=== PATIENT | male | born 1970 | race Two or more races ===

== ENCOUNTER 2024-09-18 13:22 | Inpatient (IN) | payer OTHER ==
[2024-09-18 13:39] VITALS: BMI 27.7
[2024-09-18] MEDS ORDERED: DICYCLOMINE HCL 10 MG CAPSULE PO PRN (13:56)
[2024-09-18] MEDS ORDERED: NALOXONE (NARCAN) HCL 4 MG/0.1 ML SPRAY NS PRN (13:56)
[2024-09-18] MEDS ORDERED: LOPERAMIDE HCL 2 MG CAPSULE PO PRN (13:56)
[2024-09-18] MEDS ORDERED: BISMUTH SUBSALICYLATE 524 MG/30 ML PO PRN (13:56)
[2024-09-18] MEDS ORDERED: IBUPROFEN 400 MG TABLET (FP) PO PRN (13:56)
[2024-09-18] MEDS ORDERED: LORazepam 1 MG TABLET PO PRN (13:56)
[2024-09-18] MEDS ORDERED: BENZOCAINE/MENTHOL (CHLORASEPTIC ) LOZENGE MM PRN (13:56)
[2024-09-18] MEDS ORDERED: ACETAMINOPHEN 325 MG TABLET (FP) PO PRN (13:56)
[2024-09-18] MEDS ORDERED: BENZONATATE 200 MG CAPSULE PO PRN (13:56)
[2024-09-18] MEDS ORDERED: NICOTINE POLACRILEX 2 MG GUM BUC PRN (13:56)
[2024-09-18] MEDS ORDERED: ONDANSETRON *ODT* 4 MG TABLET SL PRN (13:56)
[2024-09-18] MEDS ORDERED: MAGNESIUM HYDROX 2400MG/30ML ORAL SUSPENSION 30 ML CUP PO PRN (13:56)
[2024-09-18] MEDS ORDERED: hydrOXYzine PAMOATE 25 MG CAPSULE (FP) PO PRN (13:56)
[2024-09-18] MEDS ORDERED: POLYETHYLENE GLYCOL (HEALTHYLAX) 3350 17 GM PACKET PO PRN (13:56)
[2024-09-18] MEDS ORDERED: MAG HYDROX/AL HYDROX/SIMETH 30 ML UNIT-DOSE CUP PO PRN (13:56)
[2024-09-18] MEDS ORDERED: guaiFENesin 600 MG TABLET.ER (FP) PO PRN (13:56)
[2024-09-18] MEDS: NALTREXONE HCL 50 MG TABLET PO ONE (15:36)
[2024-09-18] MEDS: LORazepam 2 MG TABLET PO SCH (17:28)
[2024-09-18] MEDS: metFORMIN HCL 500 MG TABLET (FP) PO SCH (17:28)
[2024-09-18] MEDS: IBUPROFEN 600 MG TABLET (FP) PO PRN (17:30)
[2024-09-18] MEDS: MELATONIN 5 MG TABLETS PO SCH (22:07)
[2024-09-18] MEDS: GABAPENTIN 300 MG CAPSULE PO SCH (22:07)
[2024-09-18] MEDS: THIAMINE 100 MG TABLET PO SCH (22:08)
[2024-09-19] MEDS: ASPIRIN 81 MG CHEWABLE TABLETS PO SCH (10:08)
[2024-09-19] MEDS: NALTREXONE HCL 50 MG TABLET PO SCH (10:09)
[2024-09-19] MEDS: PRENATAL VITAMINS W/ FOLIC ACID TABLET (FP) PO SCH (10:09)
[2024-09-19] MEDS: NICOTINE 14 MG/24 HOURS TOPICAL PATCH TD SCH (10:09)
[2024-09-19] MEDS: FENOFIBRIC ACID 135 MG CAP PO SCH (10:43)
[2024-09-19 11:56] LABS: MEAN CELL VOLUME 96.6 fl (79.0-92.2)
[2024-09-19 11:57] LABS: HEMOGLOBIN 12.2 g/dL (13.7-17.5); MEAN PLT VOLUME 12.3 fl (9.4-12.4); PLATELET COUNT 54 x10^3/uL (163-337); RDW 16.9 % (12.2-16.1)
[2024-09-19 12:18] LABS: POTASSIUM 3.5 mmol/L (3.5-5.1)
[2024-09-19 12:22] LABS: ALBUMIN 3.9 g/dl (3.4-5.0); BLOOD UREA NITROGEN 13.7 mg/dL (7-18); CALCIUM 10.2 mg/dL (8.5-10.1)
[2024-09-19 12:27] LABS: BILIRUBIN,TOTAL 1.6 mg/dL (0.2-1); TOT PROT 7.7 g/dl (6.4-8.2)
[2024-09-20] MEDS: LORazepam 1 MG TABLET PO SCH (05:33)
[2024-09-20] MEDS: METHOCARBAMOL 500 MG TABLET PO PRN (10:15)
[2024-09-20 11:15] VITALS: BP 113/63; PULSE 77; RESP 17; TEMP 97.9
[2024-09-21] MEDS ORDERED: LORazepam 0.5 MG TABLET PO PRN
[2024-09-21] MEDS ORDERED: LORazepam 0.5 MG TABLET PO SCH (05:00)
[2024-09-22] MEDS ORDERED: LORazepam 0.5 MG TABLET PO ONE (05:00)
== END 2024-09-20 10:36 | disposition home or self-care (01) | DRG 775 ==
LOC: YASAS 13:22 → Y6N 15:18
PROVIDERS: ADMIT Allergy & Immunology; ATTEND Allergy & Immunology
PROC: HZ2ZZZZ Detoxification Services for Substance Abuse Treatment (ICD-10-PCS; principal; 2024-09-18)
DX: F10.230 Alcohol dependence with withdrawal, uncomplicated (principal); F17.210 Nicotine dependence, cigarettes, uncomplicated; F19.282 Other psychoactive substance dependence with psychoactive substance-induced sleep disorder; F19.24 Other psychoactive substance dependence with psychoactive substance-induced mood disorder; G47.00 Insomnia, unspecified; E78.5 Hyperlipidemia, unspecified; E11.9 Type 2 diabetes mellitus without complications; Z79.84 Long term (current) use of oral hypoglycemic drugs; M54.30 Sciatica, unspecified side; Z59.01 Sheltered homelessness
CPT/HCPCS: 36415; 80053; 80305; 80307; 82962; 83036; 85027; 86780; 93005; 93010